=== PATIENT | male | born 1970 | race Two or more races ===

== ENCOUNTER → 2019-08-23 | Emergency (ER) | payer MEDICAID, OTHER ==
[~2019-08-23] VITALS: Ht 182.9 cm; Wt 72.6 kg
[~2019-08-23] MED LIST: SODIUM CHLORIDE 0.9% 1,000 ML IV ONE
[2019-08-23 20:06] LABS: Basophils # (auto) 0.1 10 ^3/uL (0-0.2); Eosinophils # (auto) 0.1 10 ^3/uL (0-0.8); Eosinophils % (auto) 1.2 % (0.0-7.0); Hematocrit 39.4 % (41.0-53.0); Hemoglobin 13.3 g/dL (13.5-17.5); Lymphocytes # (auto) 1.5 10 ^3/uL (0.4-5.4); Lymphocytes % (auto) 21.6 % (10.0-50.0); Mean Corpuscular Hemoglobin 31.4 pg (28.0-32.0); Mean Corpuscular Hgb Conc. 33.7 g/dL (32.0-36.0); Mean Corpuscular Volume 93.2 fL (80.0-100.0); Monocytes # (auto) 0.4 10 ^3/uL (0-1.3); Monocytes % (auto) 6.5 % (0.0-12.0); Neutrophils # (auto) 4.8 10 ^3/uL (1.6-8.6); Neutrophils % (auto) 69.7 % (37.0-80.0); Nucleated Red Blood Cells % 0.1 %; Platelet Count (auto) 204 10^3/uL (140-450); Red Blood Cells 4.23 10^6/uL (4.5-5.90); Red Cell Distribution Width 14.3 % (11.8-14.3); White Blood Cell 6.9 10^3/uL (4.4-10.8)
[2019-08-23 20:21] LABS: Anion Gap 6 (5-15); Calcium 8.7 mg/dL (8.5-10.1); Carbon Dioxide 25 mmol/L (21-32); Chloride 108 mmol/L (98-107); Glucose 106 mg/dL (74-106); Potassium 3.8 mmol/L (3.5-5.1); Sodium 139 mmol/L (136-145)
[2019-08-23 20:25] LABS: Alanine Aminotransferase 49 U/L (16-61); Aspartate Aminotransferase 64 U/L (15-37); BUN/Creatinine Ratio 13.5; Bilirubin, Total 5.1 mg/dL (0.2-1.0); Blood Urea Nitrogen 13 mg/dL (7-18); GFR African American 107 mL/min; GFR Non-African American 88 mL/min; Total Protein 8.2 g/dL (6.4-8.2)
[2019-08-23 20:28] LABS: Alkaline Phosphatase 589 U/L (45-117)
[2019-08-23 21:16] LABS: Urine Bacteria FEW /hpf (None Seen); Urine Blood Negative /uL (Negative); Urine Hyaline Cast FEW /lpf (0 - 2); Urine Mucus FEW (None Seen); Urine WBC 1 /hpf (0 - 3)
[2019-08-23 21:35] LABS: Amphetamine Screen, Urine NEGATIVE (NEGATIVE); Barbiturate Scree,Urine NEGATIVE (NEGATIVE); Benzodiazephine Screen, Urine NEGATIVE (NEGATIVE); Cannabinoid Screen, Urine POSITIVE (NEGATIVE)
[2019-08-23 21:42] LABS: Cocaine Screen, Urine NEGATIVE (NEGATIVE); Opiate Scree,Urine NEGATIVE (NEGATIVE); Phencyclidine Screen, Urine NEGATIVE (NEGATIVE)
[2019-08-23 21:46] LABS: Alcohol, Urine < 3.0 mg/dL (0-10)
[2019-08-23 21:57] VITALS: BP 104/63
== END | disposition home or self-care (01) ==
LOC: EDBD 18:57 → ER 19:02
DX: T67.5XXA Heat exhaustion, unspecified, initial encounter (principal); X58.XXXA Exposure to other specified factors, initial encounter; Y93.89 Activity, other specified; Y92.89 Other specified places as the place of occurrence of the external cause; Y99.8 Other external cause status
CPT/HCPCS: 36415; 80053; 80307; 81001; 84484; 85025; 93005; 99284; J7030

== ENCOUNTER 2021-01-11 00:20 | Inpatient (IN) | payer MEDICAID ==
[~2021-01-11] VITALS: Ht 188 cm; Wt 82.0 kg
[2021-01-11 03:26] LABS: BUN/Creatinine Ratio 32.7; Calcium 8.1 mg/dL (8.5-10.1); Magnesium 2.4 mg/dL (1.6-2.6); Potassium 4.1 mmol/L (3.5-5.1)
[2021-01-11 04:31] LABS: Hematocrit 15.2 % (41.0-53.0); Mean Corpuscular Hemoglobin 19.1 pg (28.0-32.0); Mean Corpuscular Hgb Conc. 29.4 g/dL (32.0-36.0); Mean Corpuscular Volume 64.9 fL (80.0-100.0); Red Blood Cells 2.34 10^6/uL (4.5-5.90); Red Cell Distribution Width 24.5 % (11.8-14.3); White Blood Cell 9.9 10^3/uL (4.4-10.8)
[2021-01-11 04:36] LABS: Hemoglobin 4.5 g/dL (13.5-17.5)
[2021-01-11 04:37] LABS: Basophils % (manual) 0 (0.0-2.0); Blast Cells 0; Eosinophils % (manual) 0 (0-7); Metamyelocytes % 0; Promyelocytes % 0; Reactive Lymphocytes 0
[2021-01-11 05:11] LABS: Band Neutrophils % (manual) 4; Lymphocytes % (manual) 19 (10.0-50.0); Monocytes % (manual) 2 (0-12); Myelocytes % 1
[2021-01-11] MEDS ORDERED: SODIUM CHLORIDE 0.9% 1,000 ML IV ONE (07:00)
[2021-01-11 08:27] LABS: Urine WBC None Seen /hpf (0 - 3)
[2021-01-11 08:30] VITALS: BP 109/66
[2021-01-11 08:45] VITALS: BP 98/68
[2021-01-11 08:56] LABS: Urine Bacteria NONE SEEN /hpf (None Seen); Urine Blood Negative /uL (Negative); Urine Mucus FEW (None Seen); Urine Specific Gravity 1.018 (1.001-1.035)
[2021-01-11 09:41] LABS: INR 1.09 (0.9-1.15); Partial Thromboplastin Time 20.1 sec (23.6-33.0)
[2021-01-11 11:15] VITALS: BP 96/69
[2021-01-11] MEDS ORDERED: MORPHINE SULFATE INJECTION 2 MG/ML SYRG IV PRN ×3 (12:30→15:00)
[2021-01-11] MEDS ORDERED: NITROGLYCERIN 0.4 MG SL TAB SL PRN ×2 (12:30→15:00)
[2021-01-11] MEDS: SODIUM CHLORIDE 0.9% 1,000 ML IV SCH ×3 (13:00→15:24)
[2021-01-11] MEDS ORDERED: SODIUM FERR GLUC 62.5MG/5ML 125 MG in SODIUM CHL 0.9% 100 ML IV ONE (14:45)
[2021-01-11] MEDS ORDERED: B-COMPLEX W/ C & FOLIC ACID(NEPHROVITE TAB) PO ONE (15:00)
[2021-01-11] MEDS ORDERED: PANTOPRAZOLE 40 MG/10 ML VIAL INJ IV ONE (15:00)
[2021-01-11] MEDS ORDERED: LACTATED RINGER'S 1,000 ML IV ONE (15:00)
[2021-01-11] MEDS ORDERED: HYDROcodone-ACET 5/325MG TAB PO PRN (15:00)
[2021-01-11] MEDS ORDERED: LORazepam 0.5 MG TAB PO PRN (15:00)
[2021-01-11] MEDS ORDERED: DOCUSATE SOD 100 MG CAP PO PRN (15:00)
[2021-01-11] MEDS ORDERED: ALUM & MAG HYDROX-SIMETH LIQ(MAALOX) 30 ML PO PRN (15:00)
[2021-01-11] MEDS ORDERED: METOCLOPRAMIDE HCL 5MG/ml INJ 2ml VIAL IV PRN (15:00)
[2021-01-11] MEDS ORDERED: SUCRALFATE 1 GM/10 ML ORAL SUSP PO ONE (15:00)
[2021-01-11] MEDS ORDERED: ACETAMINOPHEN 325 MG TAB PO PRN (15:00)
[2021-01-11] MEDS ORDERED: CALCIUM W/VIT D (600MG/400IU) TAB PO ONE (15:15)
[2021-01-11 17:53] LABS: Eosinophils # (auto) 0 10 ^3/uL (0-0.8); Mean Corpuscular Volume 71.7 fL (80.0-100.0); Monocytes # (auto) 0.7 10 ^3/uL (0-1.3); Nucleated Red Blood Cells % 0.2 %; White Blood Cell 9.3 10^3/uL (4.4-10.8)
[2021-01-11 17:54] LABS: Basophils # (auto) 0 10 ^3/uL (0-0.2); Basophils % (auto) 0.4 % (0.0-2.0); Eosinophils % (auto) 0.1 % (0.0-7.0); Hematocrit 18.3 % (41.0-53.0); Lymphocytes # (auto) 1.7 10 ^3/uL (0.4-5.4); Lymphocytes % (auto) 18.4 % (10.0-50.0); Mean Corpuscular Hemoglobin 22.3 pg (28.0-32.0); Monocytes % (auto) 7.9 % (0.0-12.0); Neutrophils # (auto) 6.8 10 ^3/uL (1.6-8.6); Neutrophils % (auto) 73.2 % (37.0-80.0); Red Blood Cells 2.55 10^6/uL (4.5-5.90)
[2021-01-11 17:58] LABS: Red Cell Distribution Width 28.2 % (11.8-14.3)
[2021-01-11 18:03] LABS: Albumin 1.9 g/dL (3.4-5.0); Calcium 7.8 mg/dL (8.5-10.1); Potassium 3.9 mmol/L (3.5-5.1)
[2021-01-11 18:05] LABS: % Iron Saturation 23.2 % (20-55); Hemoglobin 5.7 g/dL (13.5-17.5)
[2021-01-11 18:17] LABS: BUN/Creatinine Ratio 31.4; Bilirubin, Total 3.6 mg/dL (0.2-1.0); Total Protein 6.4 g/dL (6.4-8.2)
[2021-01-11 18:29] LABS: Alcohol, Urine < 3.0 mg/dL (0-10); Amphetamine Screen, Urine NEGATIVE (NEGATIVE); Barbiturate Scree,Urine NEGATIVE (NEGATIVE); Benzodiazephine Screen, Urine NEGATIVE (NEGATIVE); Cannabinoid Screen, Urine NEGATIVE (NEGATIVE); Cocaine Screen, Urine NEGATIVE (NEGATIVE); Opiate Scree,Urine NEGATIVE (NEGATIVE); Phencyclidine Screen, Urine NEGATIVE (NEGATIVE)
[2021-01-11 19:19] LABS: Bilirubin, Total 3.6 mg/dL (0.2-1.0)
[2021-01-12] VITALS (15 sets, daily range): BP systolic 106–116; BP diastolic 59–89
[2021-01-12] MEDS: SUCRALFATE 1 GM/10 ML ORAL SUSP PO SCH ×5 (00:30→22:29)
[2021-01-12 06:09] LABS: INR 1.06 (0.9-1.15); Partial Thromboplastin Time 23.4 sec (23.6-33.0)
[2021-01-12 06:25] LABS: Potassium 3.9 mmol/L (3.5-5.1)
[2021-01-12 06:32] LABS: Albumin 1.8 g/dL (3.4-5.0); BUN/Creatinine Ratio 30.2; CRP High Sensitivity 0.4 mg/dL (< 0.3); Magnesium 2.6 mg/dL (1.6-2.6); Uric Acid 5.8 mg/dL (3.5-7.2)
[2021-01-12 06:35] LABS: Bilirubin, Total 3.8 mg/dL (0.2-1.0); Phosphorus 3.6 mg/dL (2.5-4.90)
[2021-01-12 09:24] LABS: Basophils # (auto) 0 10 ^3/uL (0-0.2); Basophils % (auto) 0.4 % (0.0-2.0); Eosinophils # (auto) 0.1 10 ^3/uL (0-0.8); Eosinophils % (auto) 1.6 % (0.0-7.0); Hematocrit 21.8 % (41.0-53.0); Lymphocytes # (auto) 1.2 10 ^3/uL (0.4-5.4); Lymphocytes % (auto) 21.1 % (10.0-50.0); Mean Corpuscular Hgb Conc. 31.3 g/dL (32.0-36.0); Monocytes # (auto) 0.4 10 ^3/uL (0-1.3); Monocytes % (auto) 7.5 % (0.0-12.0); Neutrophils # (auto) 3.9 10 ^3/uL (1.6-8.6); Neutrophils % (auto) 69.4 % (37.0-80.0); Nucleated Red Blood Cells % 0.2 %; Red Blood Cells 2.88 10^6/uL (4.5-5.90); White Blood Cell 5.7 10^3/uL (4.4-10.8)
[2021-01-12 09:25] LABS: Red Cell Distribution Width 28.4 % (11.8-14.3)
[2021-01-12 09:26] LABS: Mean Corpuscular Hemoglobin 23.7 pg (28.0-32.0); Mean Corpuscular Volume 75.6 fL (80.0-100.0)
[2021-01-12 09:28] LABS: Hemoglobin 6.8 g/dL (13.5-17.5)
[2021-01-12] MEDS: CALCIUM W/VIT D (600MG/400IU) TAB PO SCH ×2 (10:22→18:40)
[2021-01-12] MEDS: PANTOPRAZOLE 40 MG/10 ML VIAL INJ IV SCH ×2 (10:23→22:29)
[2021-01-12] MEDS: B-COMPLEX W/ C & FOLIC ACID(NEPHROVITE TAB) PO SCH (10:23)
[2021-01-12] MEDS ORDERED: IRON SUCROSE COMPLEX 200 MG in SODIUM CHL 0.9% 100 ML IV SCH (12:00)
[2021-01-12] MEDS: SODIUM FERR GLUC 62.5MG/5ML 125 MG in SODIUM CHL 0.9% 100 ML IV SCH (13:29)
[2021-01-13] MEDS: SODIUM CHLORIDE 0.9% 1,000 ML IV SCH ×2 (00:05→16:49)
[2021-01-13] MEDS: SUCRALFATE 1 GM/10 ML ORAL SUSP PO SCH ×4 (07:07→22:08)
[2021-01-13] MEDS: CALCIUM W/VIT D (600MG/400IU) TAB PO SCH ×2 (09:22→16:50)
[2021-01-13] MEDS: PANTOPRAZOLE 40 MG/10 ML VIAL INJ IV SCH ×2 (09:22→22:08)
[2021-01-13] MEDS: B-COMPLEX W/ C & FOLIC ACID(NEPHROVITE TAB) PO SCH (09:23)
[2021-01-13 10:03] LABS: Basophils # (auto) 0 10 ^3/uL (0-0.2); Eosinophils # (auto) 0.1 10 ^3/uL (0-0.8); Nucleated Red Blood Cells % 0.2 %; White Blood Cell 4.5 10^3/uL (4.4-10.8)
[2021-01-13 10:04] LABS: Basophils % (auto) 0.4 % (0.0-2.0); Eosinophils % (auto) 2.2 % (0.0-7.0); Hemoglobin 8.2 g/dL (13.5-17.5); Lymphocytes % (auto) 22.6 % (10.0-50.0); Mean Corpuscular Hemoglobin 24.5 pg (28.0-32.0); Mean Corpuscular Hgb Conc. 31.6 g/dL (32.0-36.0); Monocytes # (auto) 0.3 10 ^3/uL (0-1.3); Monocytes % (auto) 7.4 % (0.0-12.0); Neutrophils % (auto) 67.4 % (37.0-80.0); Red Blood Cells 3.35 10^6/uL (4.5-5.90); Red Cell Distribution Width 27.4 % (11.8-14.3)
[2021-01-13 10:17] LABS: Cholesterol 102 mg/dL (< 200); HDL Cholesterol 17 mg/dL (40-59); LDL Cholesterol 71 mg/dL (< 100); Triglycerides 102 mg/dL (< 150)
[2021-01-13 10:49] LABS: Mean Corpuscular Volume 77.6 fL (80.0-100.0)
[2021-01-13] MEDS: SODIUM FERR GLUC 62.5MG/5ML 125 MG in SODIUM CHL 0.9% 100 ML IV SCH (12:59)
[2021-01-13 13:00] VITALS: BP 132/80
[2021-01-13 17:05] VITALS: BP 117/69
[2021-01-14 00:35] VITALS: BP 108/58
[2021-01-14 05:00] VITALS: BP 111/65
[2021-01-14] MEDS: SUCRALFATE 1 GM/10 ML ORAL SUSP PO SCH ×2 (06:34→11:30)
[2021-01-14 07:55] LABS: Basophils # (auto) 0 10 ^3/uL (0-0.2); Lymphocytes # (auto) 1.2 10 ^3/uL (0.4-5.4); Mean Corpuscular Volume 78.3 fL (80.0-100.0); Monocytes # (auto) 0.4 10 ^3/uL (0-1.3); Nucleated Red Blood Cells % 0.1 %
[2021-01-14 07:57] LABS: Basophils % (auto) 0.6 % (0.0-2.0); Eosinophils # (auto) 0.2 10 ^3/uL (0-0.8); Eosinophils % (auto) 3.3 % (0.0-7.0); Hematocrit 25.7 % (41.0-53.0); Hemoglobin 8.1 g/dL (13.5-17.5); Lymphocytes % (auto) 25.2 % (10.0-50.0); Mean Corpuscular Hemoglobin 24.8 pg (28.0-32.0); Mean Corpuscular Hgb Conc. 31.6 g/dL (32.0-36.0); Monocytes % (auto) 9.4 % (0.0-12.0); Neutrophils # (auto) 2.9 10 ^3/uL (1.6-8.6); Neutrophils % (auto) 61.5 % (37.0-80.0); Red Blood Cells 3.29 10^6/uL (4.5-5.90); Red Cell Distribution Width 27.8 % (11.8-14.3); White Blood Cell 4.6 10^3/uL (4.4-10.8)
[2021-01-14] MEDS: B-COMPLEX W/ C & FOLIC ACID(NEPHROVITE TAB) PO SCH (08:55)
[2021-01-14] MEDS: CALCIUM W/VIT D (600MG/400IU) TAB PO SCH (08:55)
[2021-01-14] MEDS: PANTOPRAZOLE 40 MG/10 ML VIAL INJ IV SCH (08:56)
[2021-01-14 09:00] VITALS: BP_SYST 114; BP_SYST 156; BP_DIAS 76; BP_DIAS 81
[2021-01-14] MEDS: SODIUM CHLORIDE 0.9% 1,000 ML IV SCH (09:25)
[2021-01-14] MEDS: SODIUM FERR GLUC 62.5MG/5ML 125 MG in SODIUM CHL 0.9% 100 ML IV SCH (12:00)
== END 2021-01-14 13:23 | disposition home or self-care (01) | DRG 663 ==
LOC: EDBD 00:20 → ER 00:22 → TELE 12:24 → TELE-WESTW 23:07
PROVIDERS: ADMIT Hospitalist; ATTEND Family Medicine
PROC: 30233N1 Transfusion of Nonautologous Red Blood Cells into Peripheral Vein, Percutaneous Approach (ICD-10-PCS; principal; 2021-01-11)
DX: D50.9 Iron deficiency anemia, unspecified (principal); E43 Unspecified severe protein-calorie malnutrition; K76.6 Portal hypertension; K81.9 Cholecystitis, unspecified; K74.60 Unspecified cirrhosis of liver; K59.00 Constipation, unspecified; Z20.822 Contact with and (suspected) exposure to COVID-19; Z80.0 Family history of malignant neoplasm of digestive organs; Z83.2 Family history of diseases of the blood and blood-forming organs and certain disorders involving the immune mechanism; Z91.81 History of falling
CPT/HCPCS: 36415; 70450; 70551; 71045; 74176; 76705; 78226; 80048; 80053; 80061; 80307; 81001; 82247; 83021; 83036; 83540; 83550; 83615; 83735; 83880; 84100; 84443; 84484; 84550; 85007; 85025; 85027; 85045; 85610; 85652; 85660; 85730; 86141; 86850; 86880; 86900; 86901; 86920; 87426; 93005; 93306; 93886; 96361; 96365; 99291; C9113; G0378

== ENCOUNTER 2021-01-31 10:55 | Emergency (ER) | payer MEDICAID ==
[~2021-01-31] VITALS: Ht 180.3 cm; Wt 72.6 kg
[2021-01-31 12:08] LABS: Albumin 2.1 g/dL (3.4-5.0); Calcium 8.2 mg/dL (8.5-10.1); Potassium 3.7 mmol/L (3.5-5.1)
[2021-01-31 12:11] LABS: BUN/Creatinine Ratio 10.2; Bilirubin, Total 5.8 mg/dL (0.2-1.0); Total Protein 8.3 g/dL (6.4-8.2)
[2021-01-31 12:18] LABS: Hematocrit 31.4 % (41.0-53.0); Hemoglobin 10.2 g/dL (13.5-17.5); Mean Corpuscular Hemoglobin 27.6 pg (28.0-32.0); Mean Corpuscular Hgb Conc. 32.5 g/dL (32.0-36.0); Red Blood Cells 3.69 10^6/uL (4.5-5.90); White Blood Cell 3.8 10^3/uL (4.4-10.8)
[2021-01-31 12:26] LABS: Red Cell Distribution Width 27.2 % (11.8-14.3)
[2021-01-31 12:27] LABS: Basophils % (manual) 0 (0.0-2.0); Blast Cells 0; Metamyelocytes % 0; Myelocytes % 0; Promyelocytes % 0; Reactive Lymphocytes 0
[2021-01-31 12:57] VITALS: BP 116/76
[2021-01-31 13:08] LABS: Band Neutrophils % (manual) 2; Eosinophils % (manual) 3 (0-7); Lymphocytes % (manual) 33 (10.0-50.0); Monocytes % (manual) 5 (0-12)
[2021-01-31 13:13] LABS: Urine Bacteria NONE SEEN /hpf (None Seen); Urine Blood Negative /uL (Negative); Urine Specific Gravity 1.015 (1.001-1.035); Urine WBC <1 /hpf (0 - 3)
== END 2021-01-31 14:34 | disposition home or self-care (01) ==
LOC: ER 10:55 → EDBD 10:55 → ER 14:34
DX: K76.9 Liver disease, unspecified (principal); D64.9 Anemia, unspecified; E43 Unspecified severe protein-calorie malnutrition; Z68.22 Body mass index [BMI] 22.0-22.9, adult
CPT/HCPCS: 36415; 70450; 80053; 81001; 84484; 85007; 85027; 93005

== ENCOUNTER 2021-06-17 17:10 | Inpatient (IN) | payer MEDICAID ==
[~2021-06-17] VITALS: Ht 185.4 cm; Wt 79.4 kg
[~2021-06-17 17:10] MED LIST changes: +FER325T PO; -SODIUM CHLORIDE 0.9% 1,000 ML IV ONE
[2021-06-17 18:23] LABS: Basophils # (auto) 0 10 ^3/uL (0-0.2); Basophils % (auto) 0.8 % (0.0-2.0); Eosinophils # (auto) 0 10 ^3/uL (0-0.8); Monocytes # (auto) 0.2 10 ^3/uL (0-1.3); Neutrophils # (auto) 3.3 10 ^3/uL (1.6-8.6); Nucleated Red Blood Cells % 0.2 %; White Blood Cell 4.6 10^3/uL (4.4-10.8)
[2021-06-17 18:25] LABS: Eosinophils % (auto) 0.7 % (0.0-7.0); Hemoglobin 7.7 g/dL (13.5-17.5); Lymphocytes % (auto) 21.6 % (10.0-50.0); Mean Corpuscular Hemoglobin 29.8 pg (28.0-32.0); Mean Corpuscular Hgb Conc. 32.2 g/dL (32.0-36.0); Mean Corpuscular Volume 92.6 fL (80.0-100.0); Monocytes % (auto) 4.7 % (0.0-12.0); Neutrophils % (auto) 72.2 % (37.0-80.0); Red Cell Distribution Width 20.1 % (11.8-14.3)
[2021-06-17 18:31] LABS: Albumin 2.1 g/dL (3.4-5.0); BUN/Creatinine Ratio 18.6; Calcium 7.9 mg/dL (8.5-10.1); Potassium 3.9 mmol/L (3.5-5.1)
[2021-06-17 18:34] LABS: Total Protein 7.1 g/dL (6.4-8.2)
[2021-06-17] MEDS ORDERED: SODIUM CHLORIDE 0.9% 500 ML IV ONE (19:45)
[2021-06-17 20:32] LABS: Urine Bacteria FEW /hpf (None Seen); Urine Blood Negative /uL (Negative); Urine Mucus FEW (None Seen); Urine WBC 1 /hpf (0 - 3)
[2021-06-17 22:00] VITALS: BP 113/71
[2021-06-17 22:24] LABS: Hematocrit 20.7 % (41.0-53.0); Hemoglobin 7.1 g/dL (13.5-17.5)
[2021-06-17] MEDS ORDERED: PANTOPRAZOLE 40 MG/10 ML VIAL INJ IV ONE (22:45)
[2021-06-17] MEDS ORDERED: ONDANSETRON HCL 4 MG/2 ML VIAL IV PRN (22:45)
[2021-06-18] MEDS ORDERED: PANTOPRAZOLE 40 MG/10 ML VIAL INJ IV SCH (10:00)
== END 2021-06-17 23:00 | disposition left against medical advice (07) | DRG 663 ==
LOC: ER 17:10 → EDBD 17:10 → OVERFLOW 22:39
PROVIDERS: ADMIT Nurse Practitioner; ATTEND Nurse Practitioner
DX: D64.9 Anemia, unspecified (principal); E43 Unspecified severe protein-calorie malnutrition; K74.60 Unspecified cirrhosis of liver; K92.1 Melena; Z53.29 Procedure and treatment not carried out because of patient's decision for other reasons; Z80.8 Family history of malignant neoplasm of other organs or systems; Z80.0 Family history of malignant neoplasm of digestive organs; Z68.23 Body mass index [BMI] 23.0-23.9, adult
CPT/HCPCS: 36415; 71045; 80053; 81001; 82140; 82270; 83735; 83880; 84484; 85014; 85018; 85025; 86850; 86900; 86901; 93005; 96360; 96361; G0378

== ENCOUNTER 2021-07-05 19:14 | Emergency (ER) | payer MEDICAID ==
[~2021-07-05] VITALS: Ht 185.4 cm; Wt 81.2 kg
[2021-07-05 20:36] LABS: Basophils # (auto) 0 10 ^3/uL (0-0.2); Basophils % (auto) 1.1 % (0.0-2.0); Eosinophils # (auto) 0.1 10 ^3/uL (0-0.8); Eosinophils % (auto) 2.6 % (0.0-7.0); Hematocrit 23.2 % (41.0-53.0); Hemoglobin 7.1 g/dL (13.5-17.5); Lymphocytes # (auto) 0.9 10 ^3/uL (0.4-5.4); Lymphocytes % (auto) 24.3 % (10.0-50.0); Mean Corpuscular Hemoglobin 24.5 pg (28.0-32.0); Mean Corpuscular Hgb Conc. 30.6 g/dL (32.0-36.0); Mean Corpuscular Volume 80.1 fL (80.0-100.0); Monocytes # (auto) 0.3 10 ^3/uL (0-1.3); Monocytes % (auto) 8.6 % (0.0-12.0); Neutrophils # (auto) 2.3 10 ^3/uL (1.6-8.6); Neutrophils % (auto) 63.4 % (37.0-80.0); Nucleated Red Blood Cells % 0.1 %; Red Blood Cells 2.89 10^6/uL (4.5-5.90); White Blood Cell 3.7 10^3/uL (4.4-10.8)
[2021-07-05 20:38] LABS: Red Cell Distribution Width 22.5 % (11.8-14.3)
[2021-07-05 20:54] LABS: Albumin 2.3 g/dL (3.4-5.0); Calcium 8.4 mg/dL (8.5-10.1); Potassium 3.8 mmol/L (3.5-5.1)
[2021-07-05 20:57] LABS: Bilirubin, Total 4.1 mg/dL (0.2-1.0); Total Protein 7.4 g/dL (6.4-8.2)
[2021-07-05 21:14] LABS: Urine Bacteria NONE SEEN /hpf (None Seen); Urine Blood Negative /uL (Negative); Urine Specific Gravity 1.019 (1.001-1.035); Urine WBC <1 /hpf (0 - 3)
[2021-07-05] MEDS ORDERED: FERR-20 PO (21:42)
[2021-07-05] MEDS ORDERED: FERROUS SULFATE 325mg EC TAB PO ONE (21:45)
[2021-07-05 21:58] VITALS: BP 121/74
== END 2021-07-05 21:59 | disposition home or self-care (01) ==
LOC: ER 19:17
DX: D64.89 Other specified anemias (principal); K76.9 Liver disease, unspecified; E43 Unspecified severe protein-calorie malnutrition; Z68.23 Body mass index [BMI] 23.0-23.9, adult; Z79.899 Other long term (current) drug therapy
CPT/HCPCS: 36415; 71045; 80053; 81001; 84484; 85025; 93005

== ENCOUNTER 2021-08-03 12:07 | Inpatient (IN) | payer MEDICAID ==
[~2021-08-03] VITALS: Ht 185.4 cm; Wt 82.3 kg
[~2021-08-03 12:07] MED LIST changes: +FERR-20 PO
[2021-08-03 13:36] LABS: Albumin 2.1 g/dL (3.4-5.0); Calcium 7.8 mg/dL (8.5-10.1); Magnesium 2.4 mg/dL (1.6-2.6); Potassium 4.3 mmol/L (3.5-5.1)
[2021-08-03 13:40] LABS: BUN/Creatinine Ratio 23.9; Bilirubin, Total 4.3 mg/dL (0.2-1.0); Total Protein 7.3 g/dL (6.4-8.2)
[2021-08-03 13:54] LABS: Basophils # (auto) 0 10 ^3/uL (0-0.2); Eosinophils # (auto) 0.1 10 ^3/uL (0-0.8); Eosinophils % (auto) 1.9 % (0.0-7.0); Hematocrit 17.6 % (41.0-53.0); Lymphocytes # (auto) 0.9 10 ^3/uL (0.4-5.4); Lymphocytes % (auto) 21.9 % (10.0-50.0); Mean Corpuscular Hemoglobin 22.9 pg (28.0-32.0); Mean Corpuscular Hgb Conc. 30.5 g/dL (32.0-36.0); Mean Corpuscular Volume 74.9 fL (80.0-100.0); Monocytes # (auto) 0.3 10 ^3/uL (0-1.3); Monocytes % (auto) 7.3 % (0.0-12.0); Neutrophils # (auto) 2.9 10 ^3/uL (1.6-8.6); Neutrophils % (auto) 67.9 % (37.0-80.0); Nucleated Red Blood Cells % 0.4 %; Red Blood Cells 2.35 10^6/uL (4.5-5.90); White Blood Cell 4.2 10^3/uL (4.4-10.8)
[2021-08-03 14:02] LABS: Red Cell Distribution Width 22.2 % (11.8-14.3)
[2021-08-03 14:03] LABS: Hemoglobin 5.4 g/dL (13.5-17.5)
[2021-08-03] MEDS ORDERED: NITROGLYCERIN 0.4 MG SL TAB SL PRN (16:45)
[2021-08-03] MEDS ORDERED: MORPHINE SULFATE INJ 2 MG/ml SYRG IV PRN ×2 (16:45→18:00)
[2021-08-03 18:00] LABS: Urine Bacteria NONE SEEN /hpf (None Seen); Urine Blood Negative /uL (Negative); Urine WBC 1 /hpf (0 - 3)
[2021-08-03] MEDS ORDERED: LORazepam 0.5 MG TAB PO PRN (18:00)
[2021-08-03] MEDS ORDERED: DOCUSATE SOD 100 MG CAP PO PRN (18:00)
[2021-08-03] MEDS ORDERED: hydrALAZINE HCL 20 MG/ML VL IV PRN (18:00)
[2021-08-03] MEDS ORDERED: ONDANSETRON HCL 4 MG/2 ML VIAL IV PRN (18:00)
[2021-08-03] MEDS: FUROSEMIDE 20 MG/2 ML VIAL IV SCH (19:55)
[2021-08-03] MEDS: FERROUS SULFATE 325mg EC TAB PO SCH (19:58)
[2021-08-03] MEDS: LACTULOSE 20Gm/30ML SOLN PO SCH ×2 (19:59→23:25)
[2021-08-03 20:12] VITALS: BP 114/57
[2021-08-03 20:37] LABS: INR 1.12 (0.9-1.15)
[2021-08-03 20:38] VITALS: BP 100/59
[2021-08-03 20:38] LABS: Magnesium 2.1 mg/dL (1.6-2.6)
[2021-08-03 20:40] LABS: Phosphorus 3.5 mg/dL (2.5-4.90)
[2021-08-03 23:00] VITALS: BP 108/64
[2021-08-03 23:05] VITALS: BP 108/64
[2021-08-03] MEDS: PANTOPRAZOLE 40 MG/10 ML VIAL INJ IV SCH (23:25)
[2021-08-04] VITALS (15 sets, daily range): BP systolic 103–118; BP diastolic 64–75
[2021-08-04] MEDS: LACTULOSE 20Gm/30ML SOLN PO SCH ×6 (02:31→22:00)
[2021-08-04] MEDS: FUROSEMIDE 20 MG/2 ML VIAL IV SCH ×2 (06:00→18:03)
[2021-08-04 06:31] LABS: Eosinophils # (auto) 0.1 10 ^3/uL (0-0.8); Lymphocytes # (auto) 1.1 10 ^3/uL (0.4-5.4); Monocytes # (auto) 0.4 10 ^3/uL (0-1.3); Neutrophils # (auto) 2.9 10 ^3/uL (1.6-8.6); Nucleated Red Blood Cells % 0.2 %
[2021-08-04 06:32] LABS: Basophils # (auto) 0.1 10 ^3/uL (0-0.2); Basophils % (auto) 1.5 % (0.0-2.0); Eosinophils % (auto) 1.7 % (0.0-7.0); Hematocrit 20.5 % (41.0-53.0); Lymphocytes % (auto) 24.7 % (10.0-50.0); Mean Corpuscular Hemoglobin 26.7 pg (28.0-32.0); Mean Corpuscular Hgb Conc. 33.6 g/dL (32.0-36.0); Mean Corpuscular Volume 79.4 fL (80.0-100.0); Monocytes % (auto) 8.5 % (0.0-12.0); Neutrophils % (auto) 63.6 % (37.0-80.0); Red Blood Cells 2.58 10^6/uL (4.5-5.90); White Blood Cell 4.6 10^3/uL (4.4-10.8)
[2021-08-04 06:37] LABS: INR 1.13 (0.9-1.15); Magnesium 2.1 mg/dL (1.6-2.6); Partial Thromboplastin Time 25.2 sec (23.6-33.0); Potassium 3.6 mmol/L (3.5-5.1)
[2021-08-04 06:44] LABS: Albumin 1.9 g/dL (3.4-5.0); BUN/Creatinine Ratio 18.2; CRP High Sensitivity 0.48 mg/dL (< 0.3); Calcium 7.8 mg/dL (8.5-10.1); Total Protein 6.6 g/dL (6.4-8.2); Uric Acid 4.9 mg/dL (3.5-7.2)
[2021-08-04 06:59] LABS: Thyroid Stimulating Hormone 6.63 uIU/mL (0.358-3.74)
[2021-08-04 07:00] LABS: Red Cell Distribution Width 21.2 % (11.8-14.3)
[2021-08-04 07:01] LABS: Hemoglobin 6.9 g/dL (13.5-17.5)
[2021-08-04] MEDS ORDERED: SPIRONOLACTONE 25 MG TAB PO SCH (10:00)
[2021-08-04] MEDS: SPIRONOLACTONE 25 MG TAB PO SCH (10:16)
[2021-08-04] MEDS: cefTRIAXone 1GM/50ML D5W 50 ML IV SCH (10:16)
[2021-08-04] MEDS: FERROUS SULFATE 325mg EC TAB PO SCH ×3 (10:16→18:02)
[2021-08-04] MEDS: PANTOPRAZOLE 40 MG/10 ML VIAL INJ IV SCH ×2 (10:16→23:29)
[2021-08-04 19:30] LABS: Hematocrit 22.8 % (41.0-53.0); Hemoglobin 7.2 g/dL (13.5-17.5)
[2021-08-05] MEDS: LACTULOSE 20Gm/30ML SOLN PO SCH ×3 (02:00→10:24)
[2021-08-05 05:00] VITALS: BP 100/66
[2021-08-05] MEDS: FUROSEMIDE 20 MG/2 ML VIAL IV SCH (06:14)
[2021-08-05] MEDS: FERROUS SULFATE 325mg EC TAB PO SCH ×2 (08:27→12:42)
[2021-08-05 09:00] VITALS: BP 114/62
[2021-08-05] MEDS: SPIRONOLACTONE 25 MG TAB PO SCH (10:24)
[2021-08-05] MEDS: cefTRIAXone 1GM/50ML D5W 50 ML IV SCH (10:24)
[2021-08-05] MEDS: PANTOPRAZOLE 40 MG/10 ML VIAL INJ IV SCH (10:24)
[2021-08-05] MEDS ORDERED: FURO1TAB33 PO (10:30)
[2021-08-05] MEDS ORDERED: SPIR50TA5 PO (10:30)
[2021-08-05] MEDS ORDERED: LACT10PA2 PO (10:30)
[2021-08-05 12:00] VITALS: BP 114/62
== END 2021-08-05 12:45 | disposition home or self-care (01) | DRG 663 ==
LOC: ER 12:07 → TELE 16:39 → TELE-WESTW 22:55
PROVIDERS: ADMIT Hospitalist; ATTEND Family Medicine
PROC: 30233N1 Transfusion of Nonautologous Red Blood Cells into Peripheral Vein, Percutaneous Approach (ICD-10-PCS; principal; 2021-08-03)
DX: D64.9 Anemia, unspecified (principal); E43 Unspecified severe protein-calorie malnutrition; R18.8 Other ascites; E88.09 Other disorders of plasma-protein metabolism, not elsewhere classified; K74.69 Other cirrhosis of liver; Z68.23 Body mass index [BMI] 23.0-23.9, adult; Z80.8 Family history of malignant neoplasm of other organs or systems
CPT/HCPCS: 36415; 71045; 76705; 80053; 80061; 81001; 82140; 82550; 82728; 83036; 83615; 83690; 83735; 83880; 84100; 84439; 84443; 84484; 84550; 85014; 85018; 85025; 85379; 85610; 85652; 85730; 86141; 86850; 86900; 86901; 86920; 87040; 87086; 93005; 96374; 99291; C9113; G0378; J0696

== ENCOUNTER 2021-09-01 00:42 | Inpatient (IN) | payer MEDICAID ==
[2021-09-01] VITALS (48 sets, daily range): BP systolic 88–118; BP diastolic 37–73
[~2021-09-01] VITALS: Ht 185.4 cm; Wt 82.7 kg
[~2021-09-01 00:42] MED LIST changes: +FURO1TAB33 PO; +LACT10PA2 PO; +SPIR50TA5 PO
[2021-09-01 01:43] LABS: Basophils # (auto) 0.1 10 ^3/uL (0-0.2); Eosinophils # (auto) 0.1 10 ^3/uL (0-0.8); Monocytes # (auto) 0.5 10 ^3/uL (0-1.3); Monocytes % (auto) 6.8 % (0.0-12.0); Neutrophils # (auto) 5.1 10 ^3/uL (1.6-8.6); Nucleated Red Blood Cells % 0.1 %
[2021-09-01 01:45] LABS: Basophils % (auto) 0.9 % (0.0-2.0); Eosinophils % (auto) 1.5 % (0.0-7.0); Hematocrit 18.5 % (41.0-53.0); Lymphocytes # (auto) 2.1 10 ^3/uL (0.4-5.4); Lymphocytes % (auto) 26.3 % (10.0-50.0); Mean Corpuscular Hemoglobin 27.9 pg (28.0-32.0); Mean Corpuscular Hgb Conc. 32.4 g/dL (32.0-36.0); Mean Corpuscular Volume 86.3 fL (80.0-100.0); Neutrophils % (auto) 64.5 % (37.0-80.0); Red Blood Cells 2.15 10^6/uL (4.5-5.90); White Blood Cell 7.9 10^3/uL (4.4-10.8)
[2021-09-01] MEDS ORDERED: ONDANSETRON HCL 4 MG/2 ML VIAL IV ONE ×2 (01:45→04:15)
[2021-09-01 01:49] LABS: Red Cell Distribution Width 25.5 % (11.8-14.3)
[2021-09-01 01:54] LABS: INR 1.34 (0.9-1.15); Partial Thromboplastin Time 24.4 sec (23.6-33.0)
[2021-09-01 02:03] LABS: Albumin 1.9 g/dL (3.4-5.0); Calcium 7.7 mg/dL (8.5-10.1); Potassium 4.2 mmol/L (3.5-5.1)
[2021-09-01 02:05] LABS: BUN/Creatinine Ratio 35.3
[2021-09-01 02:07] LABS: Bilirubin, Total 5.9 mg/dL (0.2-1.0); Total Protein 6.1 g/dL (6.4-8.2)
[2021-09-01] MEDS ORDERED: PANTOPRAZOLE 40 MG/10 ML VIAL INJ IV ONE (04:00)
[2021-09-01] MEDS ORDERED: PANTOPRAZOLE 40mg/50ML NS AE 50 ML IV ONE (04:00)
[2021-09-01] MEDS ORDERED: SODIUM CHLORIDE 0.9% 500 ML IV ONE (06:45)
[2021-09-01] MEDS ORDERED: SOD CHL 0.45% 1,000 ML IV SCH (08:30)
[2021-09-01] MEDS ORDERED: MORPHINE SULFATE INJ 2 MG/ml SYRG IV PRN ×2 (08:30)
[2021-09-01] MEDS ORDERED: ACETAMINOPHEN 325 MG TAB PO PRN (08:30)
[2021-09-01] MEDS ORDERED: NITROGLYCERIN 0.4 MG SL TAB SL PRN (08:30)
[2021-09-01] MEDS ORDERED: DOCUSATE SOD 100 MG CAP PO PRN (08:30)
[2021-09-01] MEDS ORDERED: OCTREOTIDE ACETATE 100 MCG in SODIUM CHL 0.9% 50 ML IV ONE (08:30)
[2021-09-01] MEDS ORDERED: HYDROcodone-ACET 5/325MG TAB PO PRN (08:30)
[2021-09-01] MEDS ORDERED: CEFTRIAXONE SODIUM 2 GM in D5W 5% 50 ML IV ONE (08:30)
[2021-09-01] MEDS ORDERED: ONDANSETRON HCL 4 MG/2 ML VIAL IV PRN (08:30)
[2021-09-01] MEDS ORDERED: SODIUM CHLORIDE 0.9% 1,000 ML IV ONE ×2 (08:45→09:00)
[2021-09-01] MEDS ORDERED: ALBUMIN 25% 50 ML IV ONE (08:45)
[2021-09-01] MEDS ORDERED: DEXTROSE (50%) 50ML SYRG IV PRN (09:00)
[2021-09-01] MEDS: OCTREOTIDE ACETATE 500 MCG in SODIUM CHL 0.9% 99 ML IV SCH ×2 (09:31→19:21)
[2021-09-01 09:34] LABS: Cholesterol 89 mg/dL (< 200); Triglycerides 159 mg/dL (< 150)
[2021-09-01 09:36] LABS: HDL Cholesterol 9 mg/dL (40-59); LDL Cholesterol 62 mg/dL (< 100)
[2021-09-01] MEDS: NOREPINEPHRINE 8 MG/250ML KIT 250 ML IV SCH ×2 (10:34→22:00)
[2021-09-01] MEDS: PANTOPRAZOLE 40mg/50ML NS AE 50 ML IV SCH ×4 (11:03→22:30)
[2021-09-01] MEDS: ACCU-CHEK COMFORT CURVE STRIP VI SCH ×2 (11:59→18:00)
[2021-09-01] MEDS: InsuLIN REG 1unit/0.01ml Soln (100units/ml) SC SCH ×2 (11:59→18:00)
[2021-09-01 12:52] LABS: % Iron Saturation 8.8 % (20-55)
[2021-09-01 13:00] LABS: Hematocrit 14.7 % (41.0-53.0)
[2021-09-01 13:03] LABS: Hemoglobin 4.4 g/dL (13.5-17.5)
[2021-09-01] MEDS ORDERED: cefTRIAXone 1GM/50ML D5W 50 ML IV ONE (13:45)
[2021-09-01] MEDS ORDERED: SODIUM FERR GLUC 62.5MG/5ML 125 MG in SODIUM CHL 0.9% 100 ML IV ONE (14:00)
[2021-09-01] MEDS ORDERED: SODIUM CHLORIDE 0.9% 1,000 ML IV SCH (19:00)
[2021-09-01] MEDS ORDERED: diphenhdrAMINE HCL 50 MG/1 ML VL IV PRN (19:15)
[2021-09-02] VITALS (63 sets, daily range): BP systolic 90–149; BP diastolic 36–106
[2021-09-02] MEDS: SODIUM BICARBONATE 50ML VIAL 75 ML in D5W 5% 1,000 ML IV SCH ×2 (01:00→09:40)
[2021-09-02 01:44] LABS: Basophils # (auto) 0.1 10 ^3/uL (0-0.2); Basophils % (auto) 0.4 % (0.0-2.0); Eosinophils # (auto) 0 10 ^3/uL (0-0.8); Eosinophils % (auto) 0.1 % (0.0-7.0); Lymphocytes # (auto) 2.5 10 ^3/uL (0.4-5.4); Lymphocytes % (auto) 19.6 % (10.0-50.0); Mean Corpuscular Hemoglobin 30.6 pg (28.0-32.0); Mean Corpuscular Hgb Conc. 32.5 g/dL (32.0-36.0); Monocytes # (auto) 1.3 10 ^3/uL (0-1.3); Monocytes % (auto) 10.3 % (0.0-12.0); Neutrophils # (auto) 9.1 10 ^3/uL (1.6-8.6); Neutrophils % (auto) 69.6 % (37.0-80.0); Nucleated Red Blood Cells % 0.2 %; Red Blood Cells 2.23 10^6/uL (4.5-5.90); Red Cell Distribution Width 19.2 % (11.8-14.3)
[2021-09-02 01:50] LABS: Hemoglobin 6.8 g/dL (13.5-17.5)
[2021-09-02 01:58] LABS: Albumin 1.7 g/dL (3.4-5.0); Calcium 7.3 mg/dL (8.5-10.1); Potassium 4.5 mmol/L (3.5-5.1)
[2021-09-02 02:01] LABS: Bilirubin, Total 5.1 mg/dL (0.2-1.0); Total Protein 5.1 g/dL (6.4-8.2)
[2021-09-02] MEDS: PANTOPRAZOLE 40mg/50ML NS AE 50 ML IV SCH ×4 (02:15→22:53)
[2021-09-02] MEDS: OCTREOTIDE ACETATE 500 MCG in SODIUM CHL 0.9% 99 ML IV SCH ×2 (04:30→14:54)
[2021-09-02] MEDS: ACCU-CHEK COMFORT CURVE STRIP VI SCH ×4 (06:18→17:26)
[2021-09-02] MEDS: InsuLIN REG 1unit/0.01ml Soln (100units/ml) SC SCH ×4 (06:20→17:58)
[2021-09-02] MEDS: cefTRIAXone 1GM/50ML D5W 50 ML IV SCH (09:35)
[2021-09-02] MEDS: NOREPINEPHRINE 8 MG/250ML KIT 250 ML IV SCH (09:49)
[2021-09-02 14:32] LABS: Basophils # (auto) 0 10 ^3/uL (0-0.2); Basophils % (auto) 0.2 % (0.0-2.0); Eosinophils # (auto) 0 10 ^3/uL (0-0.8); Lymphocytes # (auto) 2.6 10 ^3/uL (0.4-5.4); Neutrophils # (auto) 11.7 10 ^3/uL (1.6-8.6)
[2021-09-02 14:34] LABS: Hematocrit 21.3 % (41.0-53.0); Lymphocytes % (auto) 16.3 % (10.0-50.0); Mean Corpuscular Hgb Conc. 31.1 g/dL (32.0-36.0); Mean Corpuscular Volume 93.1 fL (80.0-100.0); Monocytes # (auto) 1.5 10 ^3/uL (0-1.3); Monocytes % (auto) 9.6 % (0.0-12.0); Neutrophils % (auto) 73.9 % (37.0-80.0); Nucleated Red Blood Cells % 0.4 %; Red Blood Cells 2.28 10^6/uL (4.5-5.90); Red Cell Distribution Width 17.4 % (11.8-14.3); White Blood Cell 15.8 10^3/uL (4.4-10.8)
[2021-09-02] MEDS: SODIUM FERR GLUC 62.5MG/5ML 125 MG in SODIUM CHL 0.9% 100 ML IV SCH (14:54)
[2021-09-02 15:04] LABS: Hemoglobin 6.6 g/dL (13.5-17.5)
[2021-09-02] MEDS: LORazepam 2MG/ML-1ML VIAL IV PRN (16:17)
[2021-09-02] MEDS: LACTULOSE 20Gm/30ML SOLN PO SCH ×2 (22:00→22:53)
[2021-09-03] VITALS (38 sets, daily range): BP systolic 102–138; BP diastolic 50–77
[2021-09-03] MEDS: SODIUM BICARBONATE 50ML VIAL 75 ML in D5W 5% 1,000 ML IV SCH ×2 (01:00→13:05)
[2021-09-03 01:03] LABS: Basophils # (auto) 0.1 10 ^3/uL (0-0.2); Basophils % (auto) 0.4 % (0.0-2.0); Eosinophils # (auto) 0 10 ^3/uL (0-0.8); Eosinophils % (auto) 0.2 % (0.0-7.0); Hemoglobin 8.2 g/dL (13.5-17.5); Mean Corpuscular Hgb Conc. 33.8 g/dL (32.0-36.0)
[2021-09-03 01:05] LABS: Hematocrit 24.2 % (41.0-53.0); Lymphocytes # (auto) 2.6 10 ^3/uL (0.4-5.4); Lymphocytes % (auto) 16.1 % (10.0-50.0); Mean Corpuscular Hemoglobin 30.3 pg (28.0-32.0); Mean Corpuscular Volume 89.6 fL (80.0-100.0); Monocytes # (auto) 1.7 10 ^3/uL (0-1.3); Monocytes % (auto) 10.7 % (0.0-12.0); Neutrophils # (auto) 11.7 10 ^3/uL (1.6-8.6); Neutrophils % (auto) 72.6 % (37.0-80.0); Nucleated Red Blood Cells % 0.3 %; Red Cell Distribution Width 17.1 % (11.8-14.3); White Blood Cell 16.1 10^3/uL (4.4-10.8)
[2021-09-03] MEDS ORDERED: LACTULOSE 20Gm/30ML SOLN ONE ×2 (01:32→01:41)
[2021-09-03] MEDS: LACTULOSE 10g/15ml SOLN 473ML PR SCH ×5 (02:00→23:39)
[2021-09-03] MEDS: OCTREOTIDE ACETATE 500 MCG in SODIUM CHL 0.9% 99 ML IV SCH ×2 (02:30→08:53)
[2021-09-03] MEDS: PANTOPRAZOLE 40mg/50ML NS AE 50 ML IV SCH ×5 (02:33→22:25)
[2021-09-03 05:20] LABS: Albumin 1.6 g/dL (3.4-5.0); BUN/Creatinine Ratio 34.4; Basophils # (auto) 0.1 10 ^3/uL (0-0.2); Basophils % (auto) 0.4 % (0.0-2.0); Bilirubin, Total 5.4 mg/dL (0.2-1.0); Calcium 7.2 mg/dL (8.5-10.1); Eosinophils # (auto) 0 10 ^3/uL (0-0.8); Eosinophils % (auto) 0.2 % (0.0-7.0); Hematocrit 26.3 % (41.0-53.0); Hemoglobin 8.3 g/dL (13.5-17.5); Lymphocytes # (auto) 2.4 10 ^3/uL (0.4-5.4); Lymphocytes % (auto) 14.6 % (10.0-50.0); Mean Corpuscular Hemoglobin 29.2 pg (28.0-32.0); Mean Corpuscular Hgb Conc. 31.4 g/dL (32.0-36.0); Mean Corpuscular Volume 92.9 fL (80.0-100.0); Monocytes # (auto) 1.9 10 ^3/uL (0-1.3); Monocytes % (auto) 11.4 % (0.0-12.0); Neutrophils # (auto) 12.1 10 ^3/uL (1.6-8.6); Neutrophils % (auto) 73.4 % (37.0-80.0); Nucleated Red Blood Cells % 0.2 %; Potassium 4.3 mmol/L (3.5-5.1); Red Blood Cells 2.83 10^6/uL (4.5-5.90); Red Cell Distribution Width 17.2 % (11.8-14.3); Total Protein 4.8 g/dL (6.4-8.2); White Blood Cell 16.5 10^3/uL (4.4-10.8)
[2021-09-03] MEDS: ACCU-CHEK COMFORT CURVE STRIP VI SCH ×5 (05:28→23:40)
[2021-09-03] MEDS: InsuLIN REG 1unit/0.01ml Soln (100units/ml) SC SCH ×4 (05:34→18:00)
[2021-09-03] MEDS: LEVOTHYROXINE SODIUM 25 MCG TAB PO SCH (06:29)
[2021-09-03] MEDS: cefTRIAXone 1GM/50ML D5W 50 ML IV SCH (08:52)
[2021-09-03 10:41] LABS: Creatinine, Urine 154 mg/dL (30.0-125.0); Sodium Urine < 5 mmol/L (40-220)
[2021-09-03 10:57] LABS: Urine Bacteria NONE SEEN /hpf (None Seen); Urine Blood Negative /uL (Negative); Urine Specific Gravity 1.031 (1.001-1.035); Urine WBC 1 /hpf (0 - 3)
[2021-09-03] MEDS: SODIUM FERR GLUC 62.5MG/5ML 125 MG in SODIUM CHL 0.9% 100 ML IV SCH (15:08)
[2021-09-04] VITALS (83 sets, daily range): BP systolic 98–144; BP diastolic 56–78
[2021-09-04] MEDS: OCTREOTIDE ACETATE 500 MCG in SODIUM CHL 0.9% 99 ML IV SCH ×2 (00:12→12:15)
[2021-09-04] MEDS ORDERED: SODIUM BICARBONATE 8.4 % INJ 50ML VIAL IV ONE (00:49)
[2021-09-04] MEDS: SODIUM BICARBONATE 50ML VIAL 75 ML in D5W 5% 1,000 ML IV SCH ×2 (01:19→14:08)
[2021-09-04] MEDS: PANTOPRAZOLE 40mg/50ML NS AE 50 ML IV SCH ×2 (04:17→11:15)
[2021-09-04 04:30] LABS: Eosinophils # (auto) 0.1 10 ^3/uL (0-0.8); Lymphocytes # (auto) 2.7 10 ^3/uL (0.4-5.4)
[2021-09-04 04:34] LABS: Basophils # (auto) 0.2 10 ^3/uL (0-0.2); Basophils % (auto) 1.2 % (0.0-2.0); Hematocrit 23.7 % (41.0-53.0); Hemoglobin 7.6 g/dL (13.5-17.5); Mean Corpuscular Hgb Conc. 32.2 g/dL (32.0-36.0); Mean Corpuscular Volume 93.1 fL (80.0-100.0); Monocytes # (auto) 1.2 10 ^3/uL (0-1.3); Monocytes % (auto) 9.2 % (0.0-12.0); Neutrophils # (auto) 8.8 10 ^3/uL (1.6-8.6); Neutrophils % (auto) 67.6 % (37.0-80.0); Nucleated Red Blood Cells % 0.9 %; Red Blood Cells 2.55 10^6/uL (4.5-5.90); Red Cell Distribution Width 19.1 % (11.8-14.3)
[2021-09-04 04:35] LABS: Calcium 7.2 mg/dL (8.5-10.1); Potassium 3.6 mmol/L (3.5-5.1)
[2021-09-04 04:37] LABS: BUN/Creatinine Ratio 32.1; Magnesium 2.7 mg/dL (1.6-2.6); Phosphorus 2.5 mg/dL (2.5-4.90)
[2021-09-04] MEDS: InsuLIN REG 1unit/0.01ml Soln (100units/ml) SC SCH ×4 (06:00→18:00)
[2021-09-04] MEDS: ACCU-CHEK COMFORT CURVE STRIP VI SCH ×3 (06:03→18:00)
[2021-09-04] MEDS: LEVOTHYROXINE SODIUM 25 MCG TAB PO SCH (06:11)
[2021-09-04] MEDS: LACTULOSE 10g/15ml SOLN 473ML PR SCH ×3 (06:11→18:00)
[2021-09-04] MEDS: NOREPINEPHRINE 8 MG/250ML KIT 250 ML IV SCH (08:45)
[2021-09-04] MEDS: cefTRIAXone 1GM/50ML D5W 50 ML IV SCH (09:14)
[2021-09-04] MEDS ORDERED: FLUMAZENIL 0.1 MG/ML INJ 10ML MDV IV ONE ×2 (11:00)
[2021-09-04] MEDS: SODIUM FERR GLUC 62.5MG/5ML 125 MG in SODIUM CHL 0.9% 100 ML IV SCH (12:15)
[2021-09-05] VITALS (88 sets, daily range): BP systolic 86–187; BP diastolic 20–156
[2021-09-05] MEDS: SODIUM BICARBONATE 50ML VIAL 75 ML in D5W 5% 1,000 ML IV SCH ×3 (00:47→21:32)
[2021-09-05] MEDS: LACTULOSE 10g/15ml SOLN 473ML PR SCH ×4 (00:47→17:36)
[2021-09-05] MEDS ORDERED: SODIUM BICARBONATE 8.4 % INJ 50ML VIAL IV ONE (01:04)
[2021-09-05] MEDS: OCTREOTIDE ACETATE 500 MCG in SODIUM CHL 0.9% 99 ML IV SCH ×3 (03:45→21:32)
[2021-09-05 05:03] LABS: Basophils # (auto) 0 10 ^3/uL (0-0.2); Basophils % (auto) 0.4 % (0.0-2.0); Eosinophils # (auto) 0.2 10 ^3/uL (0-0.8); Hematocrit 23.8 % (41.0-53.0); Hemoglobin 7.4 g/dL (13.5-17.5); Lymphocytes # (auto) 1.5 10 ^3/uL (0.4-5.4); Lymphocytes % (auto) 17.6 % (10.0-50.0); Mean Corpuscular Hemoglobin 30.3 pg (28.0-32.0); Mean Corpuscular Hgb Conc. 31.3 g/dL (32.0-36.0); Mean Corpuscular Volume 96.7 fL (80.0-100.0); Monocytes # (auto) 0.7 10 ^3/uL (0-1.3); Monocytes % (auto) 8.9 % (0.0-12.0); Neutrophils % (auto) 71.1 % (37.0-80.0); Nucleated Red Blood Cells % 0.2 %; Red Blood Cells 2.46 10^6/uL (4.5-5.90); White Blood Cell 8.4 10^3/uL (4.4-10.8)
[2021-09-05 05:08] LABS: Red Cell Distribution Width 23.3 % (11.8-14.3)
[2021-09-05 05:12] LABS: INR 2.49 (0.9-1.15)
[2021-09-05 05:24] LABS: Potassium 3.4 mmol/L (3.5-5.1)
[2021-09-05 05:31] LABS: Albumin 1.6 g/dL (3.4-5.0); BUN/Creatinine Ratio 26.4; Bilirubin, Total 5.6 mg/dL (0.2-1.0); Calcium 6.9 mg/dL (8.5-10.1); Total Protein 4.8 g/dL (6.4-8.2)
[2021-09-05] MEDS: InsuLIN REG 1unit/0.01ml Soln (100units/ml) SC SCH ×4 (06:00→17:36)
[2021-09-05] MEDS: ACCU-CHEK COMFORT CURVE STRIP VI SCH ×4 (06:00→17:37)
[2021-09-05] MEDS: LEVOTHYROXINE SODIUM 25 MCG TAB PO SCH (07:00)
[2021-09-05] MEDS: NOREPINEPHRINE 8 MG/250ML KIT 250 ML IV SCH (07:03)
[2021-09-05] MEDS: cefTRIAXone 1GM/50ML D5W 50 ML IV SCH (07:42)
[2021-09-05] MEDS: LORazepam 2MG/ML-1ML VIAL IV PRN (09:36)
[2021-09-05] MEDS: SODIUM FERR GLUC 62.5MG/5ML 125 MG in SODIUM CHL 0.9% 100 ML IV SCH (11:59)
[2021-09-05] MEDS: PANTOPRAZOLE 40 MG/10 ML VIAL INJ IV SCH (22:08)
[2021-09-06] VITALS (42 sets, daily range): BP systolic 82–112; BP diastolic 43–69
[2021-09-06] MEDS: OCTREOTIDE ACETATE 500 MCG in SODIUM CHL 0.9% 99 ML IV SCH ×3 (00:16→18:30)
[2021-09-06] MEDS: LACTULOSE 10g/15ml SOLN 473ML PR SCH ×4 (00:17→17:54)
[2021-09-06] MEDS: ACCU-CHEK COMFORT CURVE STRIP VI SCH ×4 (00:29→17:55)
[2021-09-06 05:36] LABS: Basophils # (auto) 0 10 ^3/uL (0-0.2); Eosinophils # (auto) 0.2 10 ^3/uL (0-0.8); Monocytes # (auto) 0.4 10 ^3/uL (0-1.3); Neutrophils # (auto) 3.5 10 ^3/uL (1.6-8.6); Nucleated Red Blood Cells % 0.2 %
[2021-09-06 05:43] LABS: Basophils % (auto) 0.5 % (0.0-2.0); Eosinophils % (auto) 3.5 % (0.0-7.0); Hematocrit 21.8 % (41.0-53.0); Lymphocytes % (auto) 19.4 % (10.0-50.0); Mean Corpuscular Hemoglobin 30.6 pg (28.0-32.0); Mean Corpuscular Hgb Conc. 31.8 g/dL (32.0-36.0); Mean Corpuscular Volume 96.4 fL (80.0-100.0); Monocytes % (auto) 8.2 % (0.0-12.0); Neutrophils % (auto) 68.4 % (37.0-80.0); Red Blood Cells 2.26 10^6/uL (4.5-5.90); White Blood Cell 5.1 10^3/uL (4.4-10.8)
[2021-09-06 05:44] LABS: INR 2.52 (0.9-1.15)
[2021-09-06 05:47] LABS: Albumin 1.5 g/dL (3.4-5.0); Calcium 6.7 mg/dL (8.5-10.1); Potassium 3.2 mmol/L (3.5-5.1)
[2021-09-06 05:52] LABS: BUN/Creatinine Ratio 23.1; Bilirubin, Total 6.4 mg/dL (0.2-1.0); Total Protein 4.9 g/dL (6.4-8.2)
[2021-09-06] MEDS: InsuLIN REG 1unit/0.01ml Soln (100units/ml) SC SCH ×4 (06:00→17:54)
[2021-09-06 06:04] LABS: Hemoglobin 6.9 g/dL (13.5-17.5); Red Cell Distribution Width 22.8 % (11.8-14.3)
[2021-09-06] MEDS: cefTRIAXone 1GM/50ML D5W 50 ML IV SCH (08:09)
[2021-09-06] MEDS: NOREPINEPHRINE 8 MG/250ML KIT 250 ML IV SCH (08:09)
[2021-09-06] MEDS: PANTOPRAZOLE 40 MG/10 ML VIAL INJ IV SCH ×2 (08:09→21:39)
[2021-09-06] MEDS: LEVOTHYROXINE SODIUM 25 MCG TAB PO SCH (08:09)
[2021-09-06] MEDS ORDERED: ALBUMIN 25% 50 ML IV ONE (08:45)
[2021-09-06] MEDS: SODIUM BICARBONATE 50ML VIAL 75 ML in D5W 5% 1,000 ML IV SCH ×2 (11:22→21:49)
[2021-09-06] MEDS: POTASSIUM CHL 20MEQ/100ML 100 ML IV SCH ×2 (11:22→12:16)
[2021-09-06] MEDS: SODIUM FERR GLUC 62.5MG/5ML 125 MG in SODIUM CHL 0.9% 100 ML IV SCH (12:11)
[2021-09-07] VITALS (37 sets, daily range): BP systolic 95–139; BP diastolic 57–80
[2021-09-07] MEDS: ACCU-CHEK COMFORT CURVE STRIP VI SCH ×5 (01:00→18:00)
[2021-09-07] MEDS: InsuLIN REG 1unit/0.01ml Soln (100units/ml) SC SCH ×4 (01:00→18:00)
[2021-09-07] MEDS: OCTREOTIDE ACETATE 500 MCG in SODIUM CHL 0.9% 99 ML IV SCH ×2 (04:01→14:30)
[2021-09-07] MEDS: SODIUM BICARBONATE 50ML VIAL 75 ML in D5W 5% 1,000 ML IV SCH (05:45)
[2021-09-07] MEDS: LACTULOSE 10g/15ml SOLN 473ML PR SCH ×3 (06:15→12:22)
[2021-09-07] MEDS: LEVOTHYROXINE SODIUM 25 MCG TAB PO SCH (07:00)
[2021-09-07 07:10] LABS: Basophils # (auto) 0 10 ^3/uL (0-0.2); Eosinophils # (auto) 0.1 10 ^3/uL (0-0.8); Hemoglobin 8.4 g/dL (13.5-17.5); Lymphocytes # (auto) 0.8 10 ^3/uL (0.4-5.4); Monocytes # (auto) 0.4 10 ^3/uL (0-1.3); White Blood Cell 5.3 10^3/uL (4.4-10.8)
[2021-09-07 07:12] LABS: Basophils % (auto) 0.6 % (0.0-2.0); Eosinophils % (auto) 1.9 % (0.0-7.0); Hematocrit 25.8 % (41.0-53.0); Lymphocytes % (auto) 14.1 % (10.0-50.0); Mean Corpuscular Hgb Conc. 32.7 g/dL (32.0-36.0); Monocytes % (auto) 6.6 % (0.0-12.0); Neutrophils # (auto) 4.1 10 ^3/uL (1.6-8.6); Neutrophils % (auto) 76.8 % (37.0-80.0); Red Blood Cells 2.71 10^6/uL (4.5-5.90)
[2021-09-07 07:23] LABS: Potassium 3.6 mmol/L (3.5-5.1)
[2021-09-07 07:32] LABS: Albumin 1.7 g/dL (3.4-5.0); BUN/Creatinine Ratio 18.4; Calcium 6.8 mg/dL (8.5-10.1); Total Protein 5.2 g/dL (6.4-8.2)
[2021-09-07 07:48] LABS: Red Cell Distribution Width 21.3 % (11.8-14.3)
[2021-09-07] MEDS: NOREPINEPHRINE 8 MG/250ML KIT 250 ML IV SCH (08:45)
[2021-09-07] MEDS: cefTRIAXone 1GM/50ML D5W 50 ML IV SCH (10:18)
[2021-09-07] MEDS: PANTOPRAZOLE 40 MG/10 ML VIAL INJ IV SCH ×2 (10:18→22:21)
[2021-09-07] MEDS ORDERED: SPIRONOLACTONE 25 MG TAB PO ONE (11:30)
[2021-09-07] MEDS ORDERED: FUROSEMIDE 20 MG/2 ML VIAL IV ONE (11:30)
[2021-09-07] MEDS: SODIUM FERR GLUC 62.5MG/5ML 125 MG in SODIUM CHL 0.9% 100 ML IV SCH (13:33)
[2021-09-07] MEDS ORDERED: LACTULOSE 20Gm/30ML SOLN PO PRN (22:00)
[2021-09-08] VITALS (41 sets, daily range): BP systolic 97–133; BP diastolic 54–80
[2021-09-08] MEDS: ACCU-CHEK COMFORT CURVE STRIP VI SCH ×4 (00:07→18:00)
[2021-09-08] MEDS: OCTREOTIDE ACETATE 500 MCG in SODIUM CHL 0.9% 99 ML IV SCH ×3 (00:10→18:51)
[2021-09-08 05:01] LABS: Basophils # (auto) 0 10 ^3/uL (0-0.2); Basophils % (auto) 0.1 % (0.0-2.0); Eosinophils # (auto) 0.1 10 ^3/uL (0-0.8); Hematocrit 27.2 % (41.0-53.0); Hemoglobin 9.1 g/dL (13.5-17.5); Lymphocytes % (auto) 14.4 % (10.0-50.0); Mean Corpuscular Hemoglobin 30.8 pg (28.0-32.0); Mean Corpuscular Hgb Conc. 33.3 g/dL (32.0-36.0); Mean Corpuscular Volume 92.5 fL (80.0-100.0); Monocytes # (auto) 0.4 10 ^3/uL (0-1.3); Monocytes % (auto) 6.4 % (0.0-12.0); Neutrophils # (auto) 5.2 10 ^3/uL (1.6-8.6); Neutrophils % (auto) 77.1 % (37.0-80.0); Nucleated Red Blood Cells % 0.1 %; Red Blood Cells 2.94 10^6/uL (4.5-5.90); White Blood Cell 6.7 10^3/uL (4.4-10.8)
[2021-09-08 05:10] LABS: Red Cell Distribution Width 21.1 % (11.8-14.3)
[2021-09-08 05:23] LABS: Calcium 7.7 mg/dL (8.5-10.1)
[2021-09-08 05:25] LABS: BUN/Creatinine Ratio 15.5
[2021-09-08] MEDS: InsuLIN REG 1unit/0.01ml Soln (100units/ml) SC SCH ×4 (06:00→18:00)
[2021-09-08] MEDS: LEVOTHYROXINE SODIUM 25 MCG TAB PO SCH (06:43)
[2021-09-08 09:06] LABS: INR 2.92 (0.9-1.15)
[2021-09-08] MEDS: cefTRIAXone 1GM/50ML D5W 50 ML IV SCH (09:11)
[2021-09-08] MEDS: PANTOPRAZOLE 40 MG/10 ML VIAL INJ IV SCH ×2 (10:32→22:20)
[2021-09-08] MEDS: FUROSEMIDE 20 MG/2 ML VIAL IV SCH (10:32)
[2021-09-08] MEDS: SPIRONOLACTONE 25 MG TAB PO SCH (10:32)
[2021-09-08] MEDS ORDERED: phytonadione 10 MG in SODIUM CHL 0.9% 50 ML IV ONE (11:00)
[2021-09-08] MEDS: SODIUM FERR GLUC 62.5MG/5ML 125 MG in SODIUM CHL 0.9% 100 ML IV SCH (13:13)
[2021-09-08] MEDS: NOREPINEPHRINE 8 MG/250ML KIT 250 ML IV SCH (13:46)
[2021-09-08] MEDS: URSODIOL 300 MG CAP PO SCH (22:20)
[2021-09-09] VITALS (19 sets, daily range): BP systolic 91–108; BP diastolic 54–67
[2021-09-09 04:54] LABS: Basophils # (auto) 0 10 ^3/uL (0-0.2); Basophils % (auto) 0.9 % (0.0-2.0); Eosinophils # (auto) 0.2 10 ^3/uL (0-0.8); Eosinophils % (auto) 3.2 % (0.0-7.0); Hematocrit 26.7 % (41.0-53.0); Hemoglobin 8.7 g/dL (13.5-17.5); Lymphocytes # (auto) 1.1 10 ^3/uL (0.4-5.4); Lymphocytes % (auto) 20.9 % (10.0-50.0); Mean Corpuscular Hemoglobin 30.4 pg (28.0-32.0); Mean Corpuscular Hgb Conc. 32.6 g/dL (32.0-36.0); Mean Corpuscular Volume 93.3 fL (80.0-100.0); Monocytes # (auto) 0.3 10 ^3/uL (0-1.3); Monocytes % (auto) 6.5 % (0.0-12.0); Neutrophils # (auto) 3.6 10 ^3/uL (1.6-8.6); Neutrophils % (auto) 68.5 % (37.0-80.0); Red Blood Cells 2.86 10^6/uL (4.5-5.90); White Blood Cell 5.3 10^3/uL (4.4-10.8)
[2021-09-09 04:58] LABS: Red Cell Distribution Width 20.1 % (11.8-14.3)
[2021-09-09 05:07] LABS: INR 1.4 (0.9-1.15)
[2021-09-09 05:12] LABS: Albumin 1.6 g/dL (3.4-5.0); Calcium 7.2 mg/dL (8.5-10.1); Potassium 4.4 mmol/L (3.5-5.1)
[2021-09-09 05:18] LABS: BUN/Creatinine Ratio 14.9; Bilirubin, Total 11.4 mg/dL (0.2-1.0); Total Protein 5.4 g/dL (6.4-8.2)
[2021-09-09] MEDS: InsuLIN REG 1unit/0.01ml Soln (100units/ml) SC SCH ×2 (06:00)
[2021-09-09] MEDS: LEVOTHYROXINE SODIUM 25 MCG TAB PO SCH (06:20)
[2021-09-09] MEDS: OCTREOTIDE ACETATE 500 MCG in SODIUM CHL 0.9% 99 ML IV SCH ×2 (06:20→17:51)
[2021-09-09] MEDS: ACCU-CHEK COMFORT CURVE STRIP VI SCH ×2 (06:26)
[2021-09-09] MEDS: cefTRIAXone 1GM/50ML D5W 50 ML IV SCH (08:40)
[2021-09-09] MEDS: PANTOPRAZOLE 40 MG/10 ML VIAL INJ IV SCH ×2 (09:58→22:20)
[2021-09-09] MEDS: URSODIOL 300 MG CAP PO SCH ×2 (09:58→22:00)
[2021-09-09] MEDS: SPIRONOLACTONE 25 MG TAB PO SCH (10:00)
[2021-09-09] MEDS: phytonadione 10 MG in SODIUM CHL 0.9% 50 ML IV SCH (10:00)
[2021-09-09] MEDS: FUROSEMIDE 20 MG/2 ML VIAL IV SCH (11:50)
[2021-09-09] MEDS ORDERED: LIDOCAINE 2%HCL (LOCAL ANESTH.) INJ 10ml MDV ONE (12:04)
[2021-09-09] MEDS ORDERED: LIDOCAINE VISCOUS 2% 15ML UD ONE (12:17)
[2021-09-09] MEDS ORDERED: SODIUM CHLORIDE LOCK 10 ML ONE (12:17)
[2021-09-09] MEDS ORDERED: diphenhdrAMINE HCL 50 MG/1 ML VL ONE (12:18)
[2021-09-09] MEDS ORDERED: fentaNYL CITRATE 100 MCG/2 ML VL ONE (12:18)
[2021-09-09] MEDS: SODIUM FERR GLUC 62.5MG/5ML 125 MG in SODIUM CHL 0.9% 100 ML IV SCH (12:58)
[2021-09-09] MEDS: MIDAZOLAM HCL 5 MG/ML-1ML VIAL ONE ×2 (15:59→16:11)
[2021-09-10] VITALS (7 sets, daily range): BP systolic 95–110; BP diastolic 57–70
[2021-09-10] MEDS: OCTREOTIDE ACETATE 500 MCG in SODIUM CHL 0.9% 99 ML IV SCH ×2 (02:30→12:51)
[2021-09-10 05:37] LABS: Basophils # (auto) 0 10 ^3/uL (0-0.2); Basophils % (auto) 0.8 % (0.0-2.0); Eosinophils # (auto) 0.1 10 ^3/uL (0-0.8); Eosinophils % (auto) 1.6 % (0.0-7.0); Hematocrit 26.4 % (41.0-53.0); Hemoglobin 8.6 g/dL (13.5-17.5); INR 1.26 (0.9-1.15); Lymphocytes # (auto) 0.7 10 ^3/uL (0.4-5.4); Lymphocytes % (auto) 15.8 % (10.0-50.0); Mean Corpuscular Hemoglobin 30.2 pg (28.0-32.0); Mean Corpuscular Hgb Conc. 32.4 g/dL (32.0-36.0); Mean Corpuscular Volume 93.5 fL (80.0-100.0); Monocytes # (auto) 0.3 10 ^3/uL (0-1.3); Monocytes % (auto) 5.7 % (0.0-12.0); Neutrophils # (auto) 3.5 10 ^3/uL (1.6-8.6); Neutrophils % (auto) 76.1 % (37.0-80.0); Red Blood Cells 2.83 10^6/uL (4.5-5.90); Red Cell Distribution Width 19.7 % (11.8-14.3); White Blood Cell 4.6 10^3/uL (4.4-10.8)
[2021-09-10 05:45] LABS: Albumin 1.8 g/dL (3.4-5.0); Calcium 7.5 mg/dL (8.5-10.1); Potassium 4.3 mmol/L (3.5-5.1)
[2021-09-10 05:48] LABS: BUN/Creatinine Ratio 17.8; Bilirubin, Total 13.6 mg/dL (0.2-1.0); Total Protein 5.8 g/dL (6.4-8.2)
[2021-09-10] MEDS: LEVOTHYROXINE SODIUM 25 MCG TAB PO SCH (06:42)
[2021-09-10] MEDS: cefTRIAXone 1GM/50ML D5W 50 ML IV SCH (09:22)
[2021-09-10] MEDS: FUROSEMIDE 20 MG/2 ML VIAL IV SCH (09:23)
[2021-09-10] MEDS: SPIRONOLACTONE 25 MG TAB PO SCH (09:23)
[2021-09-10] MEDS: PANTOPRAZOLE 40 MG/10 ML VIAL INJ IV SCH ×2 (09:23→22:05)
[2021-09-10] MEDS: URSODIOL 300 MG CAP PO SCH ×2 (09:28→22:05)
[2021-09-10] MEDS: phytonadione 10 MG in SODIUM CHL 0.9% 50 ML IV SCH (11:59)
[2021-09-10] MEDS: SODIUM FERR GLUC 62.5MG/5ML 125 MG in SODIUM CHL 0.9% 100 ML IV SCH (12:51)
[2021-09-11 06:16] LABS: Basophils # (auto) 0 10 ^3/uL (0-0.2); Basophils % (auto) 1.1 % (0.0-2.0); Eosinophils # (auto) 0.1 10 ^3/uL (0-0.8); Eosinophils % (auto) 2.1 % (0.0-7.0); Hemoglobin 8.7 g/dL (13.5-17.5); Lymphocytes # (auto) 0.8 10 ^3/uL (0.4-5.4); Mean Corpuscular Hgb Conc. 34.6 g/dL (32.0-36.0); Mean Corpuscular Volume 95.4 fL (80.0-100.0); Monocytes # (auto) 0.4 10 ^3/uL (0-1.3); Monocytes % (auto) 8.5 % (0.0-12.0); Neutrophils # (auto) 2.9 10 ^3/uL (1.6-8.6); Neutrophils % (auto) 68.3 % (37.0-80.0); Nucleated Red Blood Cells % 0.1 %; Red Blood Cells 2.62 10^6/uL (4.5-5.90); Red Cell Distribution Width 19.4 % (11.8-14.3); White Blood Cell 4.2 10^3/uL (4.4-10.8)
[2021-09-11 06:17] LABS: INR 1.24 (0.9-1.15)
[2021-09-11 06:21] LABS: Potassium 4.4 mmol/L (3.5-5.1)
[2021-09-11 06:27] LABS: Albumin 1.7 g/dL (3.4-5.0); BUN/Creatinine Ratio 12.5; Bilirubin, Total 12.8 mg/dL (0.2-1.0); Calcium 7.5 mg/dL (8.5-10.1); Total Protein 6.1 g/dL (6.4-8.2)
[2021-09-11] MEDS: LEVOTHYROXINE SODIUM 25 MCG TAB PO SCH (06:47)
[2021-09-11 08:00] VITALS: BP 99/63
[2021-09-11 08:53] VITALS: BP 99/63
[2021-09-11] MEDS: FUROSEMIDE 20 MG/2 ML VIAL IV SCH (10:00)
[2021-09-11] MEDS: SPIRONOLACTONE 25 MG TAB PO SCH (10:45)
[2021-09-11] MEDS: URSODIOL 300 MG CAP PO SCH ×2 (10:46→21:14)
[2021-09-11] MEDS: PANTOPRAZOLE 40 MG/10 ML VIAL INJ IV SCH ×2 (10:46→21:14)
[2021-09-11] MEDS: SODIUM FERR GLUC 62.5MG/5ML 125 MG in SODIUM CHL 0.9% 100 ML IV SCH (12:31)
[2021-09-11 13:00] VITALS: BP 107/65
[2021-09-11 16:45] VITALS: BP 109/62
[2021-09-11] MEDS ORDERED: PANT40TA2 PO (19:01)
[2021-09-11] MEDS ORDERED: SPIR50TA5 PO (19:01)
[2021-09-11] MEDS ORDERED: LACT10SO70 PO (19:01)
[2021-09-11] MEDS ORDERED: URSO300C9 PO (19:01)
[2021-09-11] MEDS ORDERED: SUCR1TAB22 OR (19:01)
[2021-09-11 20:00] VITALS: BP 101/61
[2021-09-11 22:00] VITALS: BP 101/61
[2021-09-12 05:00] VITALS: BP 100/61
[2021-09-12] MEDS: LEVOTHYROXINE SODIUM 25 MCG TAB PO SCH (06:35)
[2021-09-12 07:18] LABS: Albumin 1.7 g/dL (3.4-5.0); BUN/Creatinine Ratio 11.6; Bilirubin, Total 12.3 mg/dL (0.2-1.0); Calcium 7.7 mg/dL (8.5-10.1); Total Protein 6.2 g/dL (6.4-8.2)
[2021-09-12 08:43] VITALS: BP 110/64
[2021-09-12] MEDS: FUROSEMIDE 20 MG/2 ML VIAL IV SCH (11:28)
[2021-09-12] MEDS: URSODIOL 300 MG CAP PO SCH (11:28)
[2021-09-12] MEDS: PANTOPRAZOLE 40 MG/10 ML VIAL INJ IV SCH (11:28)
[2021-09-12] MEDS: SPIRONOLACTONE 25 MG TAB PO SCH (11:29)
[2021-09-12] MEDS ORDERED: PANT40TA2 PO (12:52)
[2021-09-12] MEDS ORDERED: LACT10SO70 PO (12:52)
[2021-09-12] MEDS ORDERED: URSO300C9 PO (12:52)
[2021-09-12] MEDS ORDERED: SUCR1TAB22 OR (12:52)
[2021-09-12] MEDS ORDERED: SPIR25TA8 PO (12:52)
[2021-09-12 13:10] VITALS: BP 108/32
[2021-09-12] MEDS: SODIUM FERR GLUC 62.5MG/5ML 125 MG in SODIUM CHL 0.9% 100 ML IV SCH (14:00)
[2021-09-12 14:10] VITALS: BP 110/64
== END 2021-09-12 15:00 | disposition home health service (06) | DRG 280 ==
LOC: ER 00:42 → EDBD 00:42 → TELE 08:39 → ICU WEST 14:35 → DOU IN ICU 09-04 03:55 → TELE-EAST 09-10 06:00
PROVIDERS: ADMIT Family Medicine; ATTEND Internal Medicine
PROC: 30233N1 Transfusion of Nonautologous Red Blood Cells into Peripheral Vein, Percutaneous Approach (ICD-10-PCS; principal; 2021-09-01)
PROC: 05HB33Z Insertion of Infusion Device into Right Basilic Vein, Percutaneous Approach (ICD-10-PCS; 2021-09-02)
PROC: B54MZZA Ultrasonography of Right Upper Extremity Veins, Guidance (ICD-10-PCS; 2021-09-02)
PROC: 30233K1 Transfusion of Nonautologous Frozen Plasma into Peripheral Vein, Percutaneous Approach (ICD-10-PCS; 2021-09-06)
PROC: 0W9G3ZZ Drainage of Peritoneal Cavity, Percutaneous Approach (ICD-10-PCS; 2021-09-09)
PROC: 0DB98ZX Excision of Duodenum, Via Natural or Artificial Opening Endoscopic, Diagnostic (ICD-10-PCS; 2021-09-09)
PROC: 0DB68ZX Excision of Stomach, Via Natural or Artificial Opening Endoscopic, Diagnostic (ICD-10-PCS; 2021-09-09)
DX: K70.31 Alcoholic cirrhosis of liver with ascites (principal); R57.1 Hypovolemic shock; I85.11 Secondary esophageal varices with bleeding; K72.90 Hepatic failure, unspecified without coma; E43 Unspecified severe protein-calorie malnutrition; N17.9 Acute kidney failure, unspecified; K29.91 Gastroduodenitis, unspecified, with bleeding; D68.9 Coagulation defect, unspecified; R65.10 Systemic inflammatory response syndrome (SIRS) of non-infectious origin without acute organ dysfunction; D63.8 Anemia in other chronic diseases classified elsewhere; D50.0 Iron deficiency anemia secondary to blood loss (chronic); E03.9 Hypothyroidism, unspecified; Z20.822 Contact with and (suspected) exposure to COVID-19; Z68.23 Body mass index [BMI] 23.0-23.9, adult
CPT/HCPCS: 36415; 70450; 71045; 76700; 76705; 76942; 80048; 80053; 80061; 81001; 82140; 82570; 82728; 82962; 83540; 83550; 83605; 83615; 83735; 83935; 83986; 84100; 84300; 84439; 84443; 84484; 85014; 85018; 85025; 85045; 85610; 85730; 86850; 86870; 86880; 86900; 86901; 86905; 86906; 86920; 86922; 86970; 86971; 87081; 87205; 89051; 93005; 96361; 96365; 96375; 97110; 97116; 97163; 97530; 99291; C9113; G0378; J0696; J2001; J2250; J2405; J3430; J3480; J7060

== ENCOUNTER 2021-09-24 08:47 | Inpatient (IN) | payer MEDICAID ==
[~2021-09-24] VITALS: Ht 175.3 cm; Wt 69.4 kg
[2021-09-24] VITALS (34 sets, daily range): BP systolic 63–129; BP diastolic 24–69
[~2021-09-24 08:47] MED LIST changes: -FER325T PO; -LACT10PA2 PO; +LACT10SO70 PO; +PANT40TA2 PO; +SPIR25TA8 PO; -SPIR50TA5 PO; +SUCR1TAB22 OR; +URSO300C9 PO
[2021-09-24] MEDS ORDERED: SODIUM CHLORIDE 0.9% 1,000 ML IV ONE (09:00)
[2021-09-24 09:34] LABS: Basophils # (auto) 0 10 ^3/uL (0-0.2); Lymphocytes # (auto) 0.8 10 ^3/uL (0.4-5.4); Monocytes # (auto) 0.5 10 ^3/uL (0-1.3); Neutrophils % (auto) 82.4 % (37.0-80.0); Nucleated Red Blood Cells % 0.1 %
[2021-09-24 09:36] LABS: Basophils % (auto) 0.4 % (0.0-2.0); Eosinophils # (auto) 0.1 10 ^3/uL (0-0.8); Eosinophils % (auto) 0.8 % (0.0-7.0); Hematocrit 21.2 % (41.0-53.0); Lymphocytes % (auto) 9.9 % (10.0-50.0); Mean Corpuscular Hgb Conc. 33.2 g/dL (32.0-36.0); Mean Corpuscular Volume 96.3 fL (80.0-100.0); Monocytes % (auto) 6.5 % (0.0-12.0); Neutrophils # (auto) 6.4 10 ^3/uL (1.6-8.6); Red Cell Distribution Width 19.5 % (11.8-14.3); White Blood Cell 7.7 10^3/uL (4.4-10.8)
[2021-09-24 09:48] LABS: INR 1.34 (0.9-1.15); Partial Thromboplastin Time 27.1 sec (24.6-33.4)
[2021-09-24 09:55] LABS: Albumin 1.3 g/dL (3.4-5.0); BUN/Creatinine Ratio 11.2; Calcium 7.1 mg/dL (8.5-10.1); Potassium 4.5 mmol/L (3.5-5.1)
[2021-09-24 09:58] LABS: Bilirubin, Total 10.6 mg/dL (0.2-1.0); Total Protein 5.4 g/dL (6.4-8.2)
[2021-09-24 10:14] LABS: Urine Bacteria FEW /hpf (None Seen); Urine Blood 2+ /uL (Negative); Urine Hyaline Cast MOD /lpf (0 - 2); Urine Mucus FEW (None Seen); Urine Specific Gravity 1.021 (1.001-1.035); Urine WBC 73 /hpf (0 - 3)
[2021-09-24] MEDS ORDERED: NOREPINEPHRINE 8 MG/250ML KIT 250 ML IV ONE (10:19)
[2021-09-24] MEDS: NOREPINEPHRINE 8 MG/250ML KIT 250 ML IV SCH ×3 (10:25→22:48)
[2021-09-24] MEDS ORDERED: PANTOPRAZOLE 40 MG/10 ML VIAL INJ IV ONE (10:30)
[2021-09-24] MEDS ORDERED: PANTOPRAZOLE 40mg/50ML NS AE 50 ML IV ONE ×2 (10:30→13:48)
[2021-09-24] MEDS ORDERED: NITROGLYCERIN 0.4 MG SL TAB SL PRN (13:30)
[2021-09-24] MEDS ORDERED: OCTREOTIDE ACETATE 500 MCG in SODIUM CHL 0.9% 99 ML IV SCH (13:30)
[2021-09-24] MEDS ORDERED: OCTREOTIDE ACETATE 100 MCG in SODIUM CHL 0.9% 50 ML IV ONE (13:30)
[2021-09-24] MEDS ORDERED: cefTRIAXone 1GM/50ML D5W 50 ML IV ONE (13:30)
[2021-09-24] MEDS: VASOPRESSIN 50 UNITS in D5W 5% 247.5 ML IV SCH ×3 (13:45→23:04)
[2021-09-24] MEDS: metroNIDAZOLE 500MG/100ML 100 ML IV SCH ×2 (14:00→22:00)
[2021-09-24] MEDS ORDERED: PROMETHAZINE HCL 25 MG/ML 1ML IV PRN (16:45)
[2021-09-24 18:48] LABS: Hematocrit 26.7 % (41.0-53.0); Hemoglobin 8.7 g/dL (13.5-17.5)
[2021-09-24] MEDS: PANTOPRAZOLE 40mg/50ML NS AE 50 ML IV SCH (19:55)
[2021-09-24] MEDS: DOPamine 1600MCG/ML D5W 250 ML IV SCH (21:30)
[2021-09-24] MEDS ORDERED: ONDANSETRON HCL 4 MG/2 ML VIAL ONE (23:09)
[2021-09-24] MEDS ORDERED: SUCCINYLCHOLINE CHLORIDE 20 MG/ML 10ML VIAL IV ONE (23:17)
[2021-09-24] MEDS ORDERED: ETOMIDATE (2MG/ML) 20ML VIAL IV ONE (23:17)
[2021-09-24] MEDS ORDERED: MIDAZOLAM DRIP 50 mg/50mL 50 ML IV ONE (23:24)
[2021-09-24] MEDS ORDERED: fentaNYL Drip 2500mCg/250mlNS 250 ML IV ONE (23:24)
[2021-09-24] MEDS ORDERED: ONDANSETRON HCL 4 MG/2 ML VIAL IV PRN (23:45)
[2021-09-24] MEDS ORDERED: fentaNYL Drip 2500mCg/250mlNS 250 ML IV SCH (23:45)
[2021-09-24] MEDS ORDERED: MIDAZOLAM DRIP 50 mg/50mL 50 ML IV SCH (23:45)
[2021-09-25] VITALS (29 sets, daily range): BP systolic 0–141; BP diastolic 0–103
[2021-09-25] MEDS: OCTREOTIDE ACETATE 500 MCG in SODIUM CHL 0.9% 99 ML IV SCH ×3 (00:44→12:55)
[2021-09-25] MEDS: PANTOPRAZOLE 40mg/50ML NS AE 50 ML IV SCH ×3 (00:46→12:56)
[2021-09-25] MEDS ORDERED: SODIUM BICARBONATE 8.4% INJ 50ML SYRINGE ONE (01:14)
[2021-09-25] MEDS ORDERED: SODIUM BICARBONATE 8.4 % INJ 50ML VIAL IV ONE ×4 (01:15→10:15)
[2021-09-25] MEDS ORDERED: PHENYLEPHRINE IV 250 ML IV ONE (01:23)
[2021-09-25] MEDS ORDERED: EPINEPHrine HCL 250 ML IV ONE (01:41)
[2021-09-25] MEDS: PHENYLEPHRINE IV 250 ML IV SCH ×3 (01:45→10:55)
[2021-09-25 01:49] LABS: Hematocrit 17.4 % (41.0-53.0)
[2021-09-25 01:52] LABS: Hemoglobin 5.4 g/dL (13.5-17.5)
[2021-09-25] MEDS: EPINEPHrine HCL 250 ML IV SCH ×2 (02:15→08:25)
[2021-09-25] MEDS: VASOPRESSIN 50 UNITS in D5W 5% 247.5 ML IV SCH ×8 (02:16→14:11)
[2021-09-25] MEDS ORDERED: SODIUM BICARBONATE 50ML VIAL 150 ML in D5W 5% 1,000 ML IV SCH ×2 (03:15→10:15)
[2021-09-25] MEDS ORDERED: VASOPRESSIN 20 UNIT/ML ONE ×3 (03:19→05:32)
[2021-09-25] MEDS: NOREPINEPHRINE 8 MG/250ML KIT 250 ML IV SCH ×2 (08:25→12:28)
[2021-09-25] MEDS ORDERED: cefTRIAXone 1GM/50ML D5W 50 ML IV SCH (09:00)
[2021-09-25 09:02] LABS: Calcium 7.9 mg/dL (8.5-10.1)
[2021-09-25 09:13] LABS: BUN/Creatinine Ratio 10.9; Bilirubin, Total 2.9 mg/dL (0.2-1.0); Total Protein 1.6 g/dL (6.4-8.2)
[2021-09-25 09:14] LABS: Basophils # (auto) 0.1 10 ^3/uL (0-0.2); Basophils % (auto) 0.5 % (0.0-2.0); Eosinophils # (auto) 0.2 10 ^3/uL (0-0.8); Eosinophils % (auto) 0.9 % (0.0-7.0); Hematocrit 13.3 % (41.0-53.0); Lymphocytes # (auto) 5.3 10 ^3/uL (0.4-5.4); Lymphocytes % (auto) 27.1 % (10.0-50.0); Mean Corpuscular Hemoglobin 31.7 pg (28.0-32.0); Mean Corpuscular Hgb Conc. 26.7 g/dL (32.0-36.0); Mean Corpuscular Volume 118.4 fL (80.0-100.0); Monocytes % (auto) 10.2 % (0.0-12.0); Neutrophils # (auto) 11.9 10 ^3/uL (1.6-8.6); Neutrophils % (auto) 61.3 % (37.0-80.0); Nucleated Red Blood Cells % 3.8 %; Red Blood Cells 1.12 10^6/uL (4.5-5.90); Red Cell Distribution Width 16.5 % (11.8-14.3)
[2021-09-25 09:15] LABS: Hemoglobin 3.6 g/dL (13.5-17.5); White Blood Cell 19.4 10^3/uL (4.4-10.8)
[2021-09-25] MEDS: metroNIDAZOLE 500MG/100ML 100 ML IV SCH ×2 (09:17→14:38)
[2021-09-25 09:25] LABS: Albumin 0.2 g/dL (3.4-5.0); Potassium 6.2 mmol/L (3.5-5.1)
[2021-09-25] MEDS ORDERED: FUROSEMIDE 20 MG/2 ML VIAL IV SCH (10:00)
[2021-09-25] MEDS: DOPamine 1600MCG/ML D5W 250 ML IV SCH (13:05)
[2021-09-25 14:46] LABS: Hematocrit 13.8 % (41.0-53.0)
[2021-09-25 15:32] LABS: Hemoglobin 3.7 g/dL (13.5-17.5)
== END 2021-09-25 19:22 | DRG 253 ==
LOC: EDBD 08:47 → ER 08:47 → TELE 13:30 → ICU WEST 14:12
PROVIDERS: ADMIT Registered Nurse; ATTEND Internal Medicine
PROC: 30233N1 Transfusion of Nonautologous Red Blood Cells into Peripheral Vein, Percutaneous Approach (ICD-10-PCS; 2021-09-24)
PROC: 30233K1 Transfusion of Nonautologous Frozen Plasma into Peripheral Vein, Percutaneous Approach (ICD-10-PCS; 2021-09-24)
PROC: 05HC33Z Insertion of Infusion Device into Left Basilic Vein, Percutaneous Approach (ICD-10-PCS; 2021-09-24)
PROC: B54NZZA Ultrasonography of Left Upper Extremity Veins, Guidance (ICD-10-PCS; 2021-09-24)
PROC: 5A1935Z Respiratory Ventilation, Less than 24 Consecutive Hours (ICD-10-PCS; principal; 2021-09-25)
PROC: 0BH17EZ Insertion of Endotracheal Airway into Trachea, Via Natural or Artificial Opening (ICD-10-PCS; 2021-09-25)
DX: K92.2 Gastrointestinal hemorrhage, unspecified (principal); R57.1 Hypovolemic shock; J96.01 Acute respiratory failure with hypoxia; E43 Unspecified severe protein-calorie malnutrition; E87.2 Acidosis; K72.90 Hepatic failure, unspecified without coma; N17.9 Acute kidney failure, unspecified; D63.8 Anemia in other chronic diseases classified elsewhere; R18.8 Other ascites; D62 Acute posthemorrhagic anemia; E03.9 Hypothyroidism, unspecified; K74.3 Primary biliary cirrhosis; N39.0 Urinary tract infection, site not specified; Z66 Do not resuscitate; E87.5 Hyperkalemia; R80.9 Proteinuria, unspecified; E11.9 Type 2 diabetes mellitus without complications; Z20.822 Contact with and (suspected) exposure to COVID-19; Z68.22 Body mass index [BMI] 22.0-22.9, adult; Z88.5 Allergy status to narcotic agent; Z99.11 Dependence on respirator [ventilator] status; Z80.0 Family history of malignant neoplasm of digestive organs; Z91.14 Patient's other noncompliance with medication regimen
CPT/HCPCS: 36415; 36600; 71045; 74176; 76705; 80053; 81001; 82140; 82805; 85014; 85018; 85025; 85610; 85730; 86850; 86900; 86901; 86922; 87040; 87070; 87081; 87086; 87205; 93005; 94002; 94003; 96361; 96365; 96367; 96375; 96376; 99291; C9113; G0378; J0171; J0330; J0696; J2250; J2405; J3490; J7060